=== PATIENT | male | born 1975 | race Caucasian/White ===

== ENCOUNTER 2019-02-14 23:45 | Emergency (ER) | payer MEDICAID ==
[~2019-02-14] VITALS: Ht 162.6 cm; Wt 77.1 kg
[2019-02-15] VITALS: BP 149/93
--- NOTE | 2019-02-15 | NUR ---
PT AMBULATED TO BED 1 A THIS TIME
--- NOTE | 2019-02-15 00:35 | NUR ---
DR ALCALA AT BEDSIDE.
[2019-02-15] MEDS ORDERED: predniSONE 20 MG TAB PO ONE (00:45)
[2019-02-15] MEDS ORDERED: ALBUTEROL SULFATE/IPRATROPIU 3 ML SOL IH ONE (00:45)
[2019-02-15 01:43] VITALS: BP 157/94
--- NOTE | 2019-02-15 01:43 | NUR ---
Patient discharged with v/s stable. Written and verbal after care instructions given and explained. Patient alert, oriented and verbalized understanding of instructions. Ambulatory with steady gait. All questions addressed prior to discharge. ID band removed. Patient advised to follow up with PMD. Rx of AZITHROMYCIN, PREDNISONE, GUAIATUSSIN, ALBUTEROL INH given. Patient educated on indication of medication including possible reaction and side effects. Opportunity to ask questions provided and answered.
== END 2019-02-15 01:43 | disposition home or self-care (01) ==
LOC: MED 23:45
DX: J18.9 Pneumonia, unspecified organism (principal); J45.901 Unspecified asthma with (acute) exacerbation; F17.200 Nicotine dependence, unspecified, uncomplicated; Z98.890 Other specified postprocedural states
CPT/HCPCS: 71045; 87804; 94640; 99284; J7512; J7620; Q0092

== ENCOUNTER 2019-06-05 09:39 | Emergency (ER) | payer MEDICAID ==
[~2019-06-05] VITALS: Ht 162.6 cm; Wt 72.7 kg
[2019-06-05 09:44] VITALS: BP 175/84
--- NOTE | 2019-06-05 09:51 | NUR ---
pt amb to bed 12.
--- NOTE | 2019-06-05 09:52 | NUR ---
C/O POSSIBLE BUG BITE TO R SHOULDER, 06/22 DULL PAIN X2 DAYS. PT DENIES N/V/D/FEVER. PT DENIES INTRAVENOUS DRUG USE. RED/SWOLLEN BUMP WITH SMALL BLACK SPOT IN THE CENTER. PT STATES HE DOES NOT KNOW IF ITS A BUG BITE OR WHAT IT IS. NO BITES OR BUMPS FOUND ANYWHERE ELSE ON THE BODY PER PT. PT IN BED IN LOW POSITION, SIDE RAIL UP X1.
--- NOTE | 2019-06-05 10:10 | NUR ---
DR. ARGUELLES AT BEDSIDE EVALUATING PT
[2019-06-05] MEDS ORDERED: VANCOMYCIN 1,000 MG in DEXTROSE 5% 250 ML IV ONE (10:25)
[2019-06-05] MEDS ORDERED: VANCOMYCIN 1,000 MG VIAL ONE (10:38)
--- NOTE | 2019-06-05 11:23 | NUR ---
PT RESTING IN BED, AT BEDSIDE. DENIES PAIN OR ANY NEW NEEDS AT THIS TIME.
--- NOTE | 2019-06-05 12:00 | NUR ---
Patient discharged with v/s stable. Written and verbal after care instructions given and explained. Patient alert, oriented and verbalized understanding of instructions. Ambulatory with steady gait. All questions addressed prior to discharge. ID band removed. Patient advised to follow up with PMD. Rx of KEFLEX & BACTRIM given. Patient educated on indication of medication including possible reaction and side effects. Opportunity to ask questions provided and answered.
[2019-06-05 12:30] VITALS: BP 160/80
== END 2019-06-05 10:17 | disposition home or self-care (01) ==
LOC: MED 09:39
DX: R21 Rash and other nonspecific skin eruption (principal); M25.511 Pain in right shoulder; J45.909 Unspecified asthma, uncomplicated
CPT/HCPCS: 96365; 96366; 99283; J3370

== ENCOUNTER 2019-08-10 19:43 | Emergency (ER) | payer MEDICAID ==
[~2019-08-10] VITALS: Ht 162.6 cm; Wt 77.1 kg
[2019-08-10 19:50] VITALS: BP 145/85
[2019-08-10] MEDS ORDERED: KETOROLAC 15 MG/ML VIAL IM ONE (20:15)
[2019-08-10 22:26] VITALS: BP 132/82
== END 2019-08-10 22:25 | disposition home or self-care (01) ==
LOC: MED 19:43
DX: S93.401A Sprain of unspecified ligament of right ankle, initial encounter (principal); J45.909 Unspecified asthma, uncomplicated; F15.90 Other stimulant use, unspecified, uncomplicated; W01.0XXA Fall on same level from slipping, tripping and stumbling without subsequent striking against object, initial encounter; Y93.02 Activity, running; Y92.34 Swimming pool (public) as the place of occurrence of the external cause; Y99.8 Other external cause status
CPT/HCPCS: 73610; 90471; 90715; 96372; 99283; J1885; Q0092

== ENCOUNTER 2019-09-25 16:07 | Emergency (ER) | payer MEDICAID ==
[~2019-09-25] VITALS: Ht 162.6 cm; Wt 72.6 kg
[2019-09-25 16:15] VITALS: BP 155/100
[2019-09-25] MEDS ORDERED: NACL 0.9% 1,000 ML IV ONE (16:50)
[2019-09-25] MEDS ORDERED: KETOROLAC 30 MG/ML VIAL IVP ONE (16:50)
[2019-09-25 17:25] LABS: BASOPHILS % (AUTO) 0.4 % (0.0-2.0); EOSINOPHILS # (AUTO) 0.4 K/uL (0-0.4); EOSINOPHILS % (AUTO) 3.3 % (0.0-4.0); HEMATOCRIT 44.2 % (36-52); HEMOGLOBIN 14.7 g/dL (12.0-18.0); LYMPHOCYTES # (AUTO) 1.2 K/uL (2.0-11.5); LYMPHOCYTES % (AUTO) 8.9 % (20.5-51.1); MEAN CORPUSCULAR HEMOGLOBIN 30 pg (27-31); MEAN CORPUSCULAR HGB CONC 33 g/dL (33-37); MEAN CORPUSCULAR VOLUME 91.3 fL (80-94); MONOCYTES # (AUTO) 0.7 K/uL (0.8-1.0); MONOCYTES % (AUTO) 5.3 % (1.7-9.3); NEUTROPHILS % (AUTO) 82.1 % (42.2-75.2); PLATELET COUNT (AUTO) 261 K/uL (140-450); RED BLOOD CELL COUNT(AUTO) 4.84 MIL/uL (4.20-6.10); WHITE BLOOD COUNT (AUTO) 13.4 K/uL (4.8-10.8)
[2019-09-25 17:40] LABS: ANION GAP 11.2 (8-16); CARBON DIOXIDE 27.7 mmol/L (21-32); CREATININE 0.8 mg/dL (0.7-1.3); POTASSIUM 3.9 mmol/L (3.5-5.1)
[2019-09-25 17:54] LABS: ALBUMIN 3.2 g/dL (3.4-5.0); TOTAL BILIRUBIN 0.6 mg/dL (0.0-1.0)
[2019-09-25 18:02] LABS: PROTHROMBIN TIME 9.2 secs (10.8-13.4)
[2019-09-25 18:26] LABS: APPEARANCE,URINE CLEAR (CLEAR); BILIRUBIN,URINE 1+ (NEGATIVE); BLOOD, URINE NEGATIVE (NEGATIVE); COLOR,URINE YELLOW (YELLOW); LEUKOCYTE ESTERASE ,URINE NEGATIVE (NEGATIVE); NITRITE, URINE NEGATIVE (NEGATIVE); UGLUCOSE NEGATIVE (NEGATIVE)
[2019-09-25 18:34] LABS: BARBITURATE, URINE NEG. ng/ml (NEG <=200); BENZODIAZEPINE, URINE NEG. ng/mL (NEG <=200); CANNABINOID, URINE NEG. ng/mL (NEG <=50); COCAINE, URINE NEG. ng/mL (NEG <=300); OPIATE, URINE POS. ng/mL (NEG <=2000); PHENCYCLIDINE SCREEN,URINE NEG. ng/mL (NEG <=25)
[2019-09-25 19:32] VITALS: BP 150/82
== END 2019-09-25 19:32 | disposition home or self-care (01) ==
LOC: MED 16:07
DX: S20.222A Contusion of left back wall of thorax, initial encounter (principal); S01.01XA Laceration without foreign body of scalp, initial encounter; E86.0 Dehydration; L03.116 Cellulitis of left lower limb; I10 Essential (primary) hypertension; J45.909 Unspecified asthma, uncomplicated; Z98.890 Other specified postprocedural states; F17.200 Nicotine dependence, unspecified, uncomplicated; X58.XXXA Exposure to other specified factors, initial encounter; Y92.89 Other specified places as the place of occurrence of the external cause; Y93.89 Activity, other specified; Y99.8 Other external cause status
CPT/HCPCS: 36415; 36600; 71045; 72072; 80053; 80305; 81003; 82803; 83605; 83880; 84484; 85025; 85610; 85730; 87040; 87086; 87804; 93005; 96361; 96374; 99284; J1885; J7030; Q0092; 12001

== ENCOUNTER 2019-10-13 13:52 | Inpatient (IN) | payer MEDICAID ==
[~2019-10-13] VITALS: Ht 162.6 cm; Wt 72.1 kg
[2019-10-13 14:00] VITALS: BP 162/132
--- NOTE | 2019-10-13 14:00 | NUR ---
NORIS MUNSON. SENT TO LOB, AWAITING BED IN ED. VSS.
--- NOTE | 2019-10-13 14:32 | NUR ---
44/M BIB FAMILY C/O SWOLLEN LOWER LIP X 3 DAYS. DENIES DISCHARGE/DRIANAGE. DENIES CP/SOB. SPEAKING IN FULL COMPLETE SENTENCES. PATIENT STATES PAIN OF 10 AT THIS TIME. PATIENT POSITIONED FOR COMFORT; HOB ELEVATED; BEDRAILS UP X1; BED DOWN. ER MADE AWARE OF PT STATUS. Addendum: 10/13/19 at 1839 by MEDOF PT SEEN IN [facility] FOR SAME C/C. PER GIVEN A MORPHINE SHOT IN FACILITY, AND ABX PRESCRIPTION. PER DID NOT GO TO PHARMACY TO GET ABX.
--- NOTE | 2019-10-13 14:32 | NUR ---
PT AMB TO BED 2.
[2019-10-13] MEDS ORDERED: MORPHINE SULFATE 4 MG/ML SYR IVP ONE (15:00)
[2019-10-13] MEDS ORDERED: NACL 0.9% 1,000 ML IV ONE (15:00)
[2019-10-13] MEDS ORDERED: ONDANSETRON 4 MG/2 ML VIAL IVP ONE (15:00)
[2019-10-13 15:23] LABS: HEMATOCRIT 42.3 % (36-52); HEMOGLOBIN 13.8 g/dL (12.0-18.0); MEAN CORPUSCULAR HEMOGLOBIN 30 pg (27-31); MEAN CORPUSCULAR HGB CONC 33 g/dL (33-37); MEAN CORPUSCULAR VOLUME 90.7 fL (80-94); PLATELET COUNT (AUTO) 320 K/uL (140-450); RED BLOOD CELL COUNT(AUTO) 4.67 MIL/uL (4.20-6.10); RED CELL DISTRIBUTION WIDTH 13.2 % (11.6-13.7); WHITE BLOOD COUNT (AUTO) 20.2 K/uL (4.8-10.8)
[2019-10-13 15:36] LABS: ANION GAP 12.8 (8-16); CARBON DIOXIDE 25.8 mmol/L (21-32); CREATININE 0.7 mg/dL (0.7-1.3); POTASSIUM 3.6 mmol/L (3.5-5.1)
[2019-10-13 15:42] LABS: ALBUMIN 3.3 g/dL (3.4-5.0); TOTAL BILIRUBIN 0.4 mg/dL (0.0-1.0)
--- NOTE | 2019-10-13 16:23 | NUR ---
PT ROUNDING ; PT SLEEPING
[2019-10-13] MEDS ORDERED: METOPROLOL 5 MG/5 ML VIAL IVP ONE (16:35)
--- NOTE | 2019-10-13 16:35 | NUR ---
MD CARMONA NOTIFIED OF BLOOD PRESSURE PARAMETERS.
[2019-10-13 16:38] LABS: LYMPHOCYTES % (MANUAL) 10 % (20-46)
[2019-10-13 16:39] LABS: BASOPHILS % (MANUAL) 0 % (0-2); EOSINOPHILS % (MANUAL) 0 % (0-4); MONOCYTES % (MANUAL) 6 % (5-12)
--- NOTE | 2019-10-13 16:51 | NUR ---
PT TAKEN TO CT VIA WHEELCHAIR
--- NOTE | 2019-10-13 17:21 | NUR ---
PT BACK FROM CT VIA WHEELCHAIR
[2019-10-13] MEDS ORDERED: CLINDAMYCIN 900 MG in DEXTROSE 5% 100 ML IV ONE (17:35)
[2019-10-13] MEDS ORDERED: CLINDAMYCIN 900 MG/6 ML VIAL IV ONE (17:45)
--- NOTE | 2019-10-13 19:02 | NUR ---
Pt report given to ERNESTO RUBIO. Transfer of care at this time.
--- NOTE | 2019-10-13 19:41 | NUR ---
RR EVEN AND UNLABORED. PT RESTING WITH EYES CLOSED. PT PLACED ON MONITOR. VSS.
[2019-10-13] MEDS ORDERED: ONDANSETRON 4 MG/2 ML VIAL IM/IVP PRN (19:55)
[2019-10-13] MEDS ORDERED: LORazepam 2 MG/ML VIAL IM/IVP PRN (19:55)
[2019-10-13] MEDS ORDERED: GENTAMICIN PER PHARMACY MC PRN (19:55)
[2019-10-13] MEDS ORDERED: DOCUSATE SODIUM 100 MG GELCAP PO PRN (19:55)
[2019-10-13] MEDS ORDERED: VANCOMYCIN PER PHARMACY MC PRN (20:40)
[2019-10-13 20:53] LABS: ANION GAP 16.1 (8-16); CARBON DIOXIDE 24.3 mmol/L (21-32); POTASSIUM 3.4 mmol/L (3.5-5.1); TOTAL BILIRUBIN 0.4 mg/dL (0.0-1.0)
[2019-10-13 20:56] LABS: PROTHROMBIN TIME 9.5 secs (10.8-13.4)
--- NOTE | 2019-10-13 20:58 | NUR ---
Patient will be admitted to care of DR BUSTILLO. Admited to TELE. Will go to room 107B. Belongings list completed. Report to RAMIRO YOUNG.
[2019-10-13 21:00] VITALS: BP 187/106
--- NOTE | 2019-10-13 21:00 | NUR ---
PT BROUGHT UP TO FLOOR VIA W/C HE WAS ESCORTED TO ROOM 107 AND PT AMBULATED TO BED B. PT CC/FACIAL SWELLING, DX IS CELLULITIS. PT IS ON 4 LITERS VIA N/C. HE ALSO HAS SOME SCATTERED SCABS ON ARM AND A LARGE SCAB ON LEFT BACK OF LOWER LEG, WHICH IS DRY AND CLOSED. PT LOWER LIP IS VERY EDEMAS AND CHAPPED LOOKING. FACIAL SWELLING NOTED ON JAW LINE. REPORT GIVEN BY ERNESTO AT BEDSIDE. ADMISSION V/S FOLLOWS T 99.4 P 94 R 18 B/P 187/106 02 100% WITH 4 LITERS VIA N/C. RESPIRATIONS EVEN ND UNLABORED. PT DENIES PAIN AT THIS TIME. WILL SPEAK TO MD NATHAN REGARDING PT ELEVATED BLOOD PRESSURE.
[2019-10-13 21:04] LABS: ALBUMIN 3.3 g/dL (3.4-5.0); CREATININE 0.8 mg/dL (0.7-1.3); MAGNESIUM 1.6 mg/dL (1.8-2.4); PHOSPHORUS 3.7 mg/dL (2.5-4.9); THYROID STIMULATING HORMONE 2.13 uIU/mL (0.34-3.74)
[2019-10-13] MEDS ORDERED: VANCOMYCIN 1,000 MG VIAL ONE (21:29)
[2019-10-13] MEDS ORDERED: MAG SULF 2000 MG/WATER PREMIX 50 ML IV ONE (21:55)
[2019-10-13] MEDS ORDERED: PIPERACILLIN/TAZOBACTAM 3.375 GM in DEXTROSE 5% 50 ML IV SCH (22:00)
[2019-10-13] MEDS: NACL 0.9% 1,000 ML IV SCH (22:14)
[2019-10-13] MEDS: methylPREDNISolone SS 125 MG/2 ML VIAL IVP SCH (22:18)
[2019-10-13] MEDS ORDERED: METOPROLOL 25 MG TAB PO SCH (22:30)
--- NOTE | 2019-10-13 22:30 | NUR ---
SPOKE WITH MD NATHAN, SHE ORDERED METOPROLOL 25 MG BID FOR ELEVATED B/P. PT ALSO GIVEN ORDERED VANCOCIN AND SOLUMEDROL. IV SITE INTACT AND FLUSHED PATENT ORDERED NS TO RUN AT 70MLS/HR.
[2019-10-13] MEDS: VANCOMYCIN 1,000 MG in DEXTROSE 5% 250 ML IV SCH (22:32)
[2019-10-13] MEDS ORDERED: LACTULOSE 20 GM/30 ML UDC PO SCH (23:00)
[2019-10-13] MEDS ORDERED: THIAMINE 200 MG/2 ML VIAL IM SCH (23:00)
[2019-10-13] MEDS ORDERED: POTASSIUM CHLORIDE 10 MEQ TABER PO SCH (23:00)
[2019-10-13] MEDS ORDERED: MULTIVITAMIN-12 10 ML in NACL 0.9% 1,000 ML IV SCH (23:00)
[2019-10-13] MEDS ORDERED: MAG SULF 2000 MG/WATER PREMIX 50 ML IV SCH (23:00)
[2019-10-13] MEDS ORDERED: FOLIC ACID 5 MG/ML SYR IM SCH (23:00)
[2019-10-13] MEDS: KETOROLAC 15 MG/ML VIAL IM PRN (23:26)
--- NOTE | 2019-10-13 23:30 | NUR ---
PT GIVEN ORDERED VITAMIN B12 SHOT AND FOLIC ACID SHOT. PT ALSO REQUESTED TORADOL FOR FACIAL PAIN. NEW IV SITE R HAND 22G PROVIDED TO RUN MAG AT 25MLS/HR DUE TO MAGNESIUM LEVEL BEING LOW. ZOSYN HUNG AND RUNNING ORDERED AT 100MLS AN HR. V/S FOLLOWS : T 97.0 P 85 R 18 B/P 172/100 02 98% WITH 4 LITERS VIA N/C. BED LOW SIDE RAILS UP AND CALL RUTLEDGE IN REACH.
[2019-10-14] MEDS ORDERED: CLINDAMYCIN 600 MG in DEXTROSE 5% 50 ML IV SCH ×2
[2019-10-14] MEDS ORDERED: PIPERACILLIN/TAZOBACTAM 3.375 GM VIAL IV ONE ×2 (01:08→06:24)
[2019-10-14] MEDS ORDERED: MULTIVITAMIN-12 10 ML VIAL IV ONE ×2 (01:52→02:08)
[2019-10-14 04:00] VITALS: BP 126/79
[2019-10-14] MEDS ORDERED: VANCOMYCIN 1,000 MG VIAL ONE (06:24)
[2019-10-14] MEDS: PIPERACILLIN/TAZOBACTAM 3.375 GM in DEXTROSE 5% 50 ML IV SCH ×3 (06:46→17:45)
[2019-10-14] MEDS: VANCOMYCIN 1,000 MG in DEXTROSE 5% 250 ML IV SCH ×2 (06:46→14:25)
[2019-10-14] MEDS: methylPREDNISolone SS 125 MG/2 ML VIAL IVP SCH ×3 (06:47→20:59)
[2019-10-14 06:49] LABS: BASOPHILS % (AUTO) 0.3 % (0.0-2.0); HEMATOCRIT 45.2 % (36-52); HEMOGLOBIN 14.7 g/dL (12.0-18.0); LYMPHOCYTES % (AUTO) 5.3 % (20.5-51.1); MEAN CORPUSCULAR HEMOGLOBIN 30 pg (27-31); MEAN CORPUSCULAR HGB CONC 32 g/dL (33-37); MEAN CORPUSCULAR VOLUME 91.6 fL (80-94); MONOCYTES # (AUTO) 0.4 K/uL (0.8-1.0); MONOCYTES % (AUTO) 2.2 % (1.7-9.3); NEUTROPHILS # (AUTO) 17.2 K/uL (1.8-7.7); NEUTROPHILS % (AUTO) 92.2 % (42.2-75.2); PLATELET COUNT (AUTO) 349 K/uL (140-450); RED BLOOD CELL COUNT(AUTO) 4.94 MIL/uL (4.20-6.10); RED CELL DISTRIBUTION WIDTH 13.6 % (11.6-13.7); WHITE BLOOD COUNT (AUTO) 18.7 K/uL (4.8-10.8)
--- NOTE | 2019-10-14 07:10 | NUR ---
RECEIVED REPORT FROM ICE PLANT OPERATOR NURSE HANNAH. PT IS SLEEPING, AROUSABLE TO NAME, NO C/O PAIN AT THIS TIME. PT ON EXCAVATING CONTRACTOR. IV ON RT AC 18 GA AND RT HAND 22 GA RUNNING IVF PER ORDER, DRESSING CLEAN, DRY AND INTACT. RESPIRATIONS EVEN AND UNLABORED ON O2 4L VIA N/C. ABD SOFT, ACTIVE BS. SKIN IS INTACT, WARM TO TOUCH. SAFETY MEASURES IN PLACE, CALL LIGHT WITHIN REACH. REVIEWED POC WITH PT AND /ADA AT BEDSIDE -VERBALIZED UNDERSTANDING.
[2019-10-14 07:42] LABS: ANION GAP 13.3 (8-16); CARBON DIOXIDE 26.2 mmol/L (21-32); CREATININE 0.9 mg/dL (0.7-1.3); POTASSIUM 4.5 mmol/L (3.5-5.1)
[2019-10-14 07:50] LABS: CHOL/HDL RATIO 2.5 (1-4.5); MAGNESIUM 2.3 mg/dL (1.8-2.4); PHOSPHORUS 5.5 mg/dL (2.5-4.9)
[2019-10-14 08:00] VITALS: BP 120/72
--- NOTE | 2019-10-14 08:25 | NUR ---
REPORTED TO DR DRAKE THAT PT'S HR RANGES FORM Addendum: 10/14/19 at 0827 by Buffy Delcid RN CLARIFICATION: REPORTED TO DR DRAKE THAT PT'S HR RANGES FROM 45-72. PT IS AROUSABLE TO NAME, ORIENTED X4. PER PHYSICIAN, HOLD LOPRESSOR AT THIS TIME AND REPORT ANY CHANGES IN PT'S CONDITION.
[2019-10-14] MEDS: METOPROLOL 25 MG TAB PO SCH ×2 (08:28→21:03)
--- NOTE | 2019-10-14 08:55 | NUR ---
PATIENT HAS BEEN SCREENED AND CATEGORIZED MODERATE NUTRITION RISK. PATIENT WILL BE SEEN WITHIN 3-5 DAYS OF ADMISSION. 10/16/19 10/18/[address]
--- NOTE | 2019-10-14 10:30 | NUR ---
NOTIFIED DR. DRAKE THAT PT WANTS TO TAKE A SHOWER, PT TO PUT IN ADDITIONAL ORDER FOR SHOWER ACTIVITY.
[2019-10-14] MEDS: NACL 0.9% 1,000 ML IV SCH (11:18)
--- NOTE | 2019-10-14 11:24 | NUR ---
DC PLANNIN YRS OLD MALE PATIENT WAS ADMITTED FROM HOME WITH A DX OF FACIAL CELLULITES. HX OF ASTHMA, SUBSTANCE ABUSE AND LIVER CIRRHOSIS. CT OF THE FACE SHOWS NO FRACTURE OR MASS . ADMINISTERED IVF, CLINDAMYCIN, ZOSYN AND VANCOMYCIN . DC PLAN TO GO BACK HOME WHEN STABLE CM TO FOLLOW Addendum: 10/16/19 at 1320 by Tamiko Levi CM DC PLANNING: CONTINUE WITH IV ABX AMPICILLIN AND WOUND CARE WAITING FOR LIP WOUND CULTURE . AMMONIA LEVEL 49 ON LACTULOSE. DC PLAN TO GO HOME WITH ANTIBIOTICS. CM TO FOLLOW.
[2019-10-14 12:00] VITALS: BP 119/71
--- NOTE | 2019-10-14 13:39 | NUR ---
ADMINISTERED SOLUMEDROL AND ZOSYN PER ORDER, PT AND /ADA AWARE OF INDICATIONS AND POTENTIAL SIDE EFFECTS.
[2019-10-14] MEDS: KETOROLAC 15 MG/ML VIAL IM PRN (15:03)
--- NOTE | 2019-10-14 15:03 | NUR ---
ADMINISTERED TORADOL FOR LEVEL 6/10 PAIN TO LIPS, WILL REASSESS WITHIN 1 HOUR.
--- NOTE | 2019-10-14 15:25 | NUR ---
Traffic Manager Note: Basic Screen: Yes High Risk DC Screen Davey: JENY Coyne Relationship: SIGNIFICANT OTHER Pre-Admission Living Arrangements: Lives with Other Other: AUNT/UNCLE Current Home Health Name/Tel: N/A Current DME/02 Name/Tel: N/A Current Hospice Name/Tel: N/A Current Dialysis Name/Tel: N/A Healthcare Decision Maker: Patient Advance Directive No - REFUSED Information Taught: Advance Directive Community Resources Person Taught: Patient Teaching Tools: Verbal Factors Affecting Learning: None Participation Level: Refused Evaluation: Verbalizes Understanding Discipline: Case Mgt/Social Svcs Tentative Discharge Plan/Destination: No Needs Identified Will require assistance post discharge: No Referred to Gameroom Technician: No Tentative Discharge Plan Summary: Patient is a 44-year-old male admitted for facial pain. Patient has PMHX of asthma and liver cirrhosis. Patient was admitted from home. SW verified demographics with patient. Patient reports no mental heatlh history. Patient reports substance abuse history of daily alcohol use 6-12 beers a day and smoking a pack of cigarettes a day. Patient also reports methamphetamine use (1 dime a week). Patient refused substance abuse resources. SW provided education on advanced directive and patient refused. Patient's plan after discharge is to return home. No further needs identified. Signature: APPLE Whitt Date: Oct 14, 2019 Time: 15:24
[2019-10-14 16:00] VITALS: BP 133/79
--- NOTE | 2019-10-14 16:00 | NUR ---
PT HAS NO C/O PAIN AT THIS TIME. NO S/S OF RESPIRATORY DISTRESS.
--- NOTE | 2019-10-14 17:45 | NUR ---
ADMINISTERED ZOSYN PER ORDER, PT IS AWARE OF INDICATIONS AND POTENTIAL SIDE EFFECTS
--- NOTE | 2019-10-14 19:20 | NUR ---
ENDORSED PT TO ANIMAL TRAPPER NURSE FAREED. PT HAS NO S/S OF DISTRESS AT THIS TIME.
--- NOTE | 2019-10-14 19:21 | NUR ---
RECEIVED ENDORSEMENT FROM AM SHIFT NURSE. PATIENT ALERT AND ORIENTED X4. NO APPARENT DISTRESS NOTED. WITH RIGHT AC 18G RUNNING IVF AND 22G. WILL CONTINUE TO MONITOR.
[2019-10-14 20:00] VITALS: BP 132/75
--- NOTE | 2019-10-14 21:21 | NUR ---
PATIENT AWAKE IN BED. NO APPARENT DISTRESS NOTED. BED ON LOW POSITION. CALL LIGHT WITHIN REACH. WILL CONTINUE TO MONITOR.
--- NOTE | 2019-10-14 23:20 | NUR ---
PATIENT ASLEEP IN BED. NO APPARENT DISTRESS NOTED. VISIBLE CHEST RISE AND FALL NOTED. WILL CONTINUE TO MONITOR.
[2019-10-15] VITALS: BP 124/77
[2019-10-15] MEDS: NACL 0.9% 1,000 ML IV SCH ×3 (00:42→20:10)
[2019-10-15] MEDS: AMPICILLIN/SULBACTAM 3 GM in NACL 0.9% 100 ML IV SCH ×4 (00:42→18:06)
--- NOTE | 2019-10-15 01:18 | NUR ---
PATIENT ASLEEP IN BED. NO APPARENT DISTRESS NOTED. VISIBLE CHEST RISE AND FALL NOTED. BED ON LOW POSITION. CALL LIGHT WITHIN REACH. WILL CONTINUE TO MONITOR.
--- NOTE | 2019-10-15 02:40 | NUR ---
ROUNDS DONE. PATIENT ASLEEP IN BED. NO APPARENT DISTRESS NOTED. WILL CONTINUE TO MONITOR.
[2019-10-15] MEDS: KETOROLAC 15 MG/ML VIAL IM PRN ×3 (03:06→20:10)
[2019-10-15 04:00] VITALS: BP 132/74
--- NOTE | 2019-10-15 04:35 | NUR ---
PATIENT ASLEEP IN BED. NO APPARENT DISTRESS NOTED. WILL CONTINUE TO MONITOR.
[2019-10-15] MEDS: methylPREDNISolone SS 125 MG/2 ML VIAL IVP SCH (05:27)
--- NOTE | 2019-10-15 06:14 | NUR ---
PATIENT AWAKE IN BED. BED ON LOW POSITION. CALL LIGHT WITHIN REACH. NO APPARENT DISTRESS NOTED. DENIES PAIN NOR DISCOMFORT. WILL CONTINUE TO MONITOR.
--- NOTE | 2019-10-15 07:25 | NUR ---
ENDORSED PATIENT TO AM SHIFT NURSE FOR CONTINUITY OF CARE.
--- NOTE | 2019-10-15 07:25 | NUR ---
REPORT RECEIVED FROM NURSE GUERRIER. PT SLEEPING, AROUSABLE TO VERBAL STIMULI. DENIES PAIN OR DISCOMFORT. NO S/S OF ACUTE DISTRESS NOTED AT THIS TIME. CALL LIGHT AMD PERSONAL ITEMS WITHIN EASY REACH, SAFETY AND FALL PRECAUTIONS IN PLACE,NO S/S OF ACUTE DISTRESS AT THIS TIME, WILL CONTINUE TO MONITOR.
[2019-10-15 08:00] VITALS: BP 126/71
[2019-10-15 08:05] LABS: BASOPHILS # (AUTO) 0.1 K/uL (0.00-0.22); BASOPHILS % (AUTO) 0.2 % (0.0-2.0); HEMATOCRIT 41.2 % (36-52); HEMOGLOBIN 13.3 g/dL (12.0-18.0); LYMPHOCYTES # (AUTO) 1.3 K/uL (2.0-11.5); LYMPHOCYTES % (AUTO) 5.7 % (20.5-51.1); MEAN CORPUSCULAR HEMOGLOBIN 30 pg (27-31); MEAN CORPUSCULAR HGB CONC 32 g/dL (33-37); MEAN CORPUSCULAR VOLUME 91.4 fL (80-94); MONOCYTES % (AUTO) 4.4 % (1.7-9.3); NEUTROPHILS % (AUTO) 89.7 % (42.2-75.2); PLATELET COUNT (AUTO) 377 K/uL (140-450); RED BLOOD CELL COUNT(AUTO) 4.51 MIL/uL (4.20-6.10); RED CELL DISTRIBUTION WIDTH 12.7 % (11.6-13.7); WHITE BLOOD COUNT (AUTO) 22.3 K/uL (4.8-10.8)
[2019-10-15 08:13] LABS: ANION GAP 14.1 (8-16); APPEARANCE,URINE CLEAR (CLEAR); BILIRUBIN,URINE NEGATIVE (NEGATIVE); BLOOD, URINE NEGATIVE (NEGATIVE); CARBON DIOXIDE 25.1 mmol/L (21-32); COLOR,URINE YELLOW (YELLOW); CREATININE 0.7 mg/dL (0.7-1.3); LEUKOCYTE ESTERASE ,URINE NEGATIVE (NEGATIVE); NITRITE, URINE NEGATIVE (NEGATIVE); PH,URINE 7.5 (5.0-9.0); POTASSIUM 4.2 mmol/L (3.5-5.1); UGLUCOSE NEGATIVE (NEGATIVE)
[2019-10-15 08:26] LABS: MAGNESIUM 2.1 mg/dL (1.8-2.4); PHOSPHORUS 3.7 mg/dL (2.5-4.9)
[2019-10-15 08:36] LABS: BARBITURATE, URINE NEG. ng/ml (NEG <=200); BENZODIAZEPINE, URINE NEG. ng/mL (NEG <=200); CANNABINOID, URINE NEG. ng/mL (NEG <=50); COCAINE, URINE NEG. ng/mL (NEG <=300); OPIATE, URINE NEG. ng/mL (NEG <=2000); PHENCYCLIDINE SCREEN,URINE NEG. ng/mL (NEG <=25)
[2019-10-15] MEDS: METOPROLOL 25 MG TAB PO SCH ×2 (08:45→20:08)
[2019-10-15 08:57] LABS: T4 (THYROXINE) 5.5 ug/dL (4.5-12.0)
[2019-10-15] MEDS ORDERED: MULTIVITAMIN-12 10 ML, THIAMINE 100 MG, FOLIC ACID 1 MG, MAGNESIUM SULFATE 50% 2,000 MG... IV SCH ×5 (09:00)
--- NOTE | 2019-10-15 09:55 | NUR ---
PER AARON IN LAB PT MRSA NARES POSITIVE, RESULTS TO FOLLOW; CHARGE NURSE NOTIFIED, RESIDENT NOTIFIED, PT PLACED ON ISOLATION PER PROTOCOL, EDUCATED PT REGARDING ROOM TRANSFER AND ISOLATION PRECAUTIONS, VERBALIZED AGREEMENT AND UNDERSTANDING. CALL LIGHT AND PERSONAL ITEMS PLACED WITHIN EASY REACH, SAFETY AND FALL PRECAUTIONS IN PLACE,NO S/S OF ACUTE DISTRESS AT THIS TIME, WILL CONTINUE TO MONITOR.
[2019-10-15 12:00] VITALS: BP 140/80
--- NOTE | 2019-10-15 12:55 | NUR ---
PT BROTHER IN LAW AT BEDSIDE, PROVIDED EDUCATION REGARDING ISOLATION, VERBALIZED UNDERSTANDING, ASSISTED W COMPLIANCE. PT C/O OF PAIN WILL MEDICATE PER ORDER, CALL LIGHT AND PERSONAL ITEMS WITHIN EASY REACH, SAFETY AND FALL PRECAUTIONS IN PLACE, WILL CONTINUE TO MONITOR.
[2019-10-15] MEDS ORDERED: LACTULOSE 20 GM/30 ML UDC PO SCH (13:11)
--- NOTE | 2019-10-15 15:30 | NUR ---
PT SLEEPING AT THIS TIME, APPEARS COMFORTABLE, NO S/S OF ACUTE DISTRESS NOTED, CALL LIGHT AND PERSONAL ITEMS WITHIN EASY REACH, SAFETY AND FALL PRECAUTIONS IN PLACE, WILL CONTINUE TO MONITOR.
[2019-10-15] MEDS: MUPIROCIN CA NASAL 2% 1GM TUBE NS SCH (15:38)
[2019-10-15] MEDS: CHLORHEXADINE GLUC 2% CLOTH TP SCH (15:40)
[2019-10-15 16:00] VITALS: BP 143/80
--- NOTE | 2019-10-15 18:30 | NUR ---
PT REMAINS A/O ABLE TO COMMUNICATE NEEDS DURING SHIFT. PT SLEEPING AT THIS TIME. SIGNIFICANT OTHER AT BEDSIDE, EDUCATED VISITOR ON ISOLATION PRECAUTIONS AND PPE WITH COMPLIANCE. PT HAS CALL LIGHT AND PERSONAL ITEMS WITHIN EASY REACH, SAFETY AND FALL PRECAUTIONS IN PLACE,NO S/S OF ACUTE DISTRESS AT THIS TIME, WILL CONTINUE TO MONITOR.
--- NOTE | 2019-10-15 18:35 | NUR ---
SWAB OBTAINED FOR LIP CULTURE, PT TOLERATED WELL.
--- NOTE | 2019-10-15 19:26 | NUR ---
PT ASLEEP APPEARS COMFORTABLE, BEDSIDE REPORT GIVEN TO ONCOMING NURSE.
--- NOTE | 2019-10-15 19:30 | NUR ---
RECEIVED BEDSIDE REPORT DAY RN. PT IS AAOX4 ON ROOM AIR. RESPIRATIONS ARE EQUAL AND UNLABORED. LUNG SOUNDS ARE CLEAR. C/C FACIAL PAIN. DX FACIAL CELLULITIS PT WITH SCAB ON LIPS WITH SWELLING TO LIP AND L CHEEK. PT ON IV ANTIBIOTIC. PT ON CONTACT ISOLATION FOR MRSA. IV ON R HAND 22G AND RAC 18G BANANA BAG PER ORDERS AND NS AT 70ML. POC DISCUSSED WITH PT AND GIRLFRIEND. ALL SAFETY MEASURES ARE IN PLACE. CALL LIGHT IS WITHIN REACH. WILL CONTINUE TO MONITOR.
--- NOTE | 2019-10-15 20:10 | NUR ---
PRN TORADOL GIVEN FOR FACIAL PAIN. JOCELYNN LOPRESSOR GIVEN PT TOLERATED WELL. ALL NEEDS MET AT THIS TIME. WILL CONTINUE TO MONITOR.
--- NOTE | 2019-10-15 22:32 | NUR ---
PATIENT IS SLEEPING COMFORTABLY IN BED. CALL LIGHT IS WITHIN REACH. WILL CONTINUE TO MONITOR
[2019-10-16] VITALS: BP 146/89
--- NOTE | 2019-10-16 00:30 | NUR ---
VITAL SIGNS ARE WITHIN NORMAL LIMITS. ALL NEEDS MET AT THIS TIME. SAFETY MEASURES ARE IN PLACE.
[2019-10-16] MEDS: AMPICILLIN/SULBACTAM 3 GM in NACL 0.9% 100 ML IV SCH ×5 (00:38→23:41)
[2019-10-16] MEDS: ZOLPIDEM 5 MG TAB PO PRN ×2 (00:42→23:45)
--- NOTE | 2019-10-16 02:15 | NUR ---
PATIENT IS SLEEPING COMFORTABLY IN BED. CHEST RISE AND FALL. ALL NEEDS MET AT THIS TIME. WILL CONTINUE TO MONITOR
[2019-10-16] MEDS: KETOROLAC 15 MG/ML VIAL IM PRN ×4 (03:29→23:41)
--- NOTE | 2019-10-16 03:29 | NUR ---
ADMINISTERED PRN TORADOL FOR FACIAL PAIN 04/22. PT TOLERATED WELL. WILL CONTINUE TO MONITOR.
[2019-10-16 06:07] LABS: HEPATITIS A ANTIBODY IGM Negative (Negative); HEPATITIS B CORE AB TOTAL Negative (Negative); HEPATITIS B SURFACE ANTIBODY Non Reactive (.); HEPATITIS B SURFACE ANTIGEN Negative (Negative)
[2019-10-16 06:52] LABS: BASOPHILS % (AUTO) 0.2 % (0.0-2.0); EOSINOPHILS # (AUTO) 0.2 K/uL (0-0.4); EOSINOPHILS % (AUTO) 1.4 % (0.0-4.0); HEMATOCRIT 41.6 % (36-52); HEMOGLOBIN 13.5 g/dL (12.0-18.0); LYMPHOCYTES # (AUTO) 2.9 K/uL (2.0-11.5); LYMPHOCYTES % (AUTO) 22.1 % (20.5-51.1); MEAN CORPUSCULAR HEMOGLOBIN 30 pg (27-31); MEAN CORPUSCULAR HGB CONC 33 g/dL (33-37); MEAN CORPUSCULAR VOLUME 90.8 fL (80-94); MONOCYTES # (AUTO) 1.2 K/uL (0.8-1.0); MONOCYTES % (AUTO) 9.1 % (1.7-9.3); NEUTROPHILS # (AUTO) 8.7 K/uL (1.8-7.7); NEUTROPHILS % (AUTO) 67.2 % (42.2-75.2); PLATELET COUNT (AUTO) 328 K/uL (140-450); RED BLOOD CELL COUNT(AUTO) 4.58 MIL/uL (4.20-6.10); WHITE BLOOD COUNT (AUTO) 12.9 K/uL (4.8-10.8)
[2019-10-16 07:03] LABS: ANION GAP 14.3 (8-16); CARBON DIOXIDE 24.5 mmol/L (21-32); CREATININE 0.6 mg/dL (0.7-1.3); POTASSIUM 3.8 mmol/L (3.5-5.1)
[2019-10-16 07:09] LABS: PHOSPHORUS 3.4 mg/dL (2.5-4.9)
--- NOTE | 2019-10-16 07:30 | NUR ---
GAVE BEDSIDE REPORT TO DAY RN. PT ENDORSED IN STABLE CONDITION.
--- NOTE | 2019-10-16 07:54 | NUR ---
RECEIVED BEDSIDE REPORT FROM AGRICULTURE ENGINEER RN. PT IS AAOX4 ON ROOM AIR. RESPIRATIONS ARE EQUAL AND UNLABORED. LUNG SOUNDS ARE CLEAR. C/C FACIAL PAIN. DX FACIAL CELLULITIS PT WITH SCAB ON LIPS WITH SWELLING TO LIP AND L CHEEK. PT ON IV ANTIBIOTIC. PT ON CONTACT ISOLATION FOR MRSA. IV ON R HAND 22G AND RAC 18G SL PER ORDERS AND NS AT 70ML. POC DISCUSSED WITH PT AND GIRLFRIEND. ALL SAFETY MEASURES ARE IN PLACE. CALL LIGHT IS WITHIN REACH. WILL MONITOR PT CLOSELY.
--- NOTE | 2019-10-16 09:36 | NUR ---
ADMINISTERED MORNING MEDS TO PT. PT TOLERATED WELL. ALL NEEDS MET. WILL CONTINUE TO ROUND FREQUENTLY ON PT. BED IN LOW POSITION, CALL LIGHT WITHIN REACH.
[2019-10-16] MEDS: METOPROLOL 25 MG TAB PO SCH (09:37)
--- NOTE | 2019-10-16 11:24 | NUR ---
PT SLEEPING IN BED. ALL NEEDS MET. WILL CONTINUE TO ROUND FREQUENTLY ON PT. BED IN LOW POSITION, CALL LIGHT WITHIN REACH.
--- NOTE | 2019-10-16 13:45 | NUR ---
PT SLEEPING. ALL NEEDS MET. WILL CONTINUE TO ROUND FREQUENTLY ON PT. BED IN LOW POSITION, CALL LIGHT WITHIN REACH.
--- NOTE | 2019-10-16 15:28 | NUR ---
PT RESTING IN BED WATCHING TV WITH GIRLFRIEND AT BEDSIDE. ALL NEEDS MET. WILL CONTINUE TO ROUND FREQUENTLY ON PT.
[2019-10-16] MEDS: MUPIROCIN CA NASAL 2% 1GM TUBE NS SCH ×2 (16:17→17:15)
[2019-10-16] MEDS: CHLORHEXADINE GLUC 2% CLOTH TP SCH (16:18)
--- NOTE | 2019-10-16 17:00 | NUR ---
RECEIVED REPORT FROM DAY SHIFT NURSE JAMARI FOR CONTINUITY OF CARE. PT IN STABLE CONDITION. RESPIRATIONS EVEN AND UNLABORED, ROOM AIR. IV INTACT AND PATENT. SAFETY MEASURES IN PLACE. BED IN LOW POSITION. CALL LIGHT AT BEDSIDE. WILL CONTINUE TO MONITOR.
--- NOTE | 2019-10-16 18:24 | NUR ---
GAVE ORDERED DUE MEDICATIONS AT THIS TIME. PT TOLERATED WELL. BED IN LOW POSITION. CALL LIGHT AT BEDSIDE. WILL CONTINUE TO MONITOR.
--- NOTE | 2019-10-16 19:15 | NUR ---
GAVE REPORT TO DOCTOR OF PODIATRIC MEDICINE NURSE FOR CONTINUITY OF CARE. PT IN STABLE CONDITION. [id number]
--- NOTE | 2019-10-16 19:16 | NUR ---
RECEIVED BEDSIDE REPORT DAY RN. PT IS AAOX4 ON ROOM AIR. RESPIRATIONS ARE EQUAL AND UNLABORED. LUNG SOUNDS ARE CLEAR. C/C FACIAL PAIN. DX FACIAL CELLULITIS PT WITH SCAB ON LIPS WITH SWELLING TO LIP AND L CHEEK. PT ON IV ANTIBIOTIC. PT ON CONTACT ISOLATION FOR MRSA. IV ON R HAND 22G AND RAC 18G NS AT 70ML. POC DISCUSSED WITH PT. ALL SAFETY MEASURES ARE IN PLACE. CALL LIGHT IS WITHIN REACH. WILL CONTINUE TO MONITOR.
--- NOTE | 2019-10-16 19:53 | NUR ---
ENDORSED PT TO EYEGLASS ASSEMBLER FOR CONTINUITY OF CARE. PT IN STABLE CONDITION AT THIS TIME.
--- NOTE | 2019-10-16 20:23 | NUR ---
JOCELYNN LOPRESSOR ADMINISTERED PATIENT TOLERATED WELL. DENIES PAIN AT THIS TIME. ALL QUESTIONS AND CONCERNS ADDRESSED WITH PATIENT AND STILL WAITING FOR CX RESULTS FROM LIP CELLULITIS. GAVE COFFEE PER REQUEST. ALL NEEDS MET AT THIS TIME. CALL LIGHT IS WITHIN REACH.
[2019-10-16] MEDS: NACL 0.9% 1,000 ML IV SCH (20:26)
--- NOTE | 2019-10-16 22:12 | NUR ---
PT RESTING IN BED. ALL NEEDS MET. WILL CONTINUE TO ROUND FREQUENTLY ON PT. BED IN LOW POSITION, CALL LIGHT WITHIN REACH.
[2019-10-16 23:32] VITALS: BP 150/93
--- NOTE | 2019-10-16 23:34 | NUR ---
VITAL SIGNS ARE WITHIN NORMAL LIMITS. ALL SAFETY MEASURES ARE IN PLACE. CALL LIGHT IS WITHIN REACH. WILL CONTINUE TO MONITOR.
--- NOTE | 2019-10-17 01:23 | NUR ---
PATIENT IS SLEEPING COMFORTABLY IN BED CHEST RISE AND FALL. NO S/S OF DISTRESS. IS AT BEDSIDE. CALL LIGHT IS WITHIN REACH. WILL CONTINUE TO MONITOR.
--- NOTE | 2019-10-17 04:13 | NUR ---
PATIENT IS SLEEPING COMFORTABLY IN BED WITH EYES CLOSED. CHEST RISE AND FALL. SAFETY MEASURES ARE IN PLACE. CALL LIGHT IS WITHIN REACH.
[2019-10-17] MEDS ORDERED: GABAPENTIN 300 MG CAP ONE (12:49)
[2019-10-18 20:11] LABS: ANION GAP 13.6 (8-16); CARBON DIOXIDE 25.2 mmol/L (21-32); CREATININE 0.6 mg/dL (0.7-1.3); PHOSPHORUS 3.9 mg/dL (2.5-4.9); POTASSIUM 3.8 mmol/L (3.5-5.1)
[2019-10-19 10:36] LABS: BASOPHILS % (AUTO) 0.4 % (0.0-2.0); EOSINOPHILS # (AUTO) 0.4 K/uL (0-0.4); EOSINOPHILS % (AUTO) 5.1 % (0.0-4.0); HEMATOCRIT 43.9 % (36-52); HEMOGLOBIN 14.5 g/dL (12.0-18.0); LYMPHOCYTES # (AUTO) 2.5 K/uL (2.0-11.5); LYMPHOCYTES % (AUTO) 29.4 % (20.5-51.1); MEAN CORPUSCULAR HEMOGLOBIN 30 pg (27-31); MEAN CORPUSCULAR HGB CONC 33 g/dL (33-37); MEAN CORPUSCULAR VOLUME 90.7 fL (80-94); MONOCYTES % (AUTO) 11.2 % (1.7-9.3); NEUTROPHILS # (AUTO) 4.6 K/uL (1.8-7.7); NEUTROPHILS % (AUTO) 53.9 % (42.2-75.2); PLATELET COUNT (AUTO) 333 K/uL (140-450); RED BLOOD CELL COUNT(AUTO) 4.84 MIL/uL (4.20-6.10); RED CELL DISTRIBUTION WIDTH 13.2 % (11.6-13.7); WHITE BLOOD COUNT (AUTO) 8.6 K/uL (4.8-10.8)
== END 2019-10-17 14:25 | disposition home or self-care (01) | DRG 720 ==
LOC: MED 13:52 → MTU 19:54
PROVIDERS: ADMIT General Practice; ATTEND General Practice
DX: A41.9 Sepsis, unspecified organism (principal); G92 Toxic encephalopathy; E72.20 Disorder of urea cycle metabolism, unspecified; E44.1 Mild protein-calorie malnutrition; E87.6 Hypokalemia; T50.991A Poisoning by other drugs, medicaments and biological substances, accidental (unintentional), initial encounter; J45.909 Unspecified asthma, uncomplicated; F17.200 Nicotine dependence, unspecified, uncomplicated; L03.211 Cellulitis of face; K70.30 Alcoholic cirrhosis of liver without ascites; F19.90 Other psychoactive substance use, unspecified, uncomplicated; Z68.27 Body mass index [BMI] 27.0-27.9, adult; Z88.6 Allergy status to analgesic agent; Z88.5 Allergy status to narcotic agent; Y92.89 Other specified places as the place of occurrence of the external cause
CPT/HCPCS: 36415; 70487; 71045; 80048; 80053; 80202; 80305; 81003; 82140; 82150; 83036; 83605; 83690; 83735; 83880; 84100; 84134; 84436; 84443; 84484; 85025; 85610; 85730; 86702; 86704; 86706; 86708; 86709; 86803; 87040; 87070; 87075; 87081; 87086; 87186; 87205; 87340; 93005; 96361; 96365; 96375; 99285; A9153; G0482; J0295; J1885; J2270; J2405; J2543; J2930; J3370; J3411; J3475; J3490; J7030; J7060; Q0092; Q9967

== ENCOUNTER 2020-02-12 02:15 | Emergency (ER) | payer MEDICAID ==
[~2020-02-12] VITALS: Ht 160 cm; Wt 73.0 kg
[2020-02-12 02:31] VITALS: BP 127/78
--- NOTE | 2020-02-12 02:35 | NUR ---
45 YO MALE BIB SELF FOR C/O REDNESS/SWELLING TO L NIPPLE X 1 DAY. PAIN 10/10 RADIATING TO LEFT CHEST. PT DENIES FEVER CHILLS @ THIS TIME. L CHEST TENDER TO TOUCH/REDDENDED. WARM TO TOUCH. GURNEY LOCKED IN LOWEST POSITION. RX: ALBUTEROL HX: ASTHMA DRUG USE: METH LAST USED 02/12/20, ETOH- 12 PACK/DAY
--- NOTE | 2020-02-12 02:51 | NUR ---
Dr. Michel examining patient.
[2020-02-12] MEDS ORDERED: LIDOCAINE MPF 1% 5 ML ONE (02:55)
[2020-02-12] MEDS ORDERED: LIDOCAINE 2% 1000 MG/50 ML VIAL INJ ONE (03:00)
--- NOTE | 2020-02-12 03:30 | NUR ---
DR CLARK @ BEDSIDE FOR INICISION DRAINAGE OF ABSCESS. SEROSANGUINOUS DRAINAGE WITH PUS NOTED PT TOLERATED PROCEDURE WELL.
--- NOTE | 2020-02-12 03:45 | NUR ---
Patient discharged with v/s stable. Written and verbal after care instructions given and explained. Patient alert, oriented and verbalized understanding of instructions. Ambulatory with steady gait. All questions addressed prior to discharge. ID band removed. Patient advised to follow up with PMD. Rx of KEFLEX, BACTRIM, MOTRIN given. Patient educated on indication of medication including possible reaction and side effects. Opportunity to ask questions provided and answered.
[2020-02-12 04:06] VITALS: BP 132/65
== END 2020-02-12 03:45 | disposition home or self-care (01) ==
LOC: MED 02:15
DX: N61.1 Abscess of the breast and nipple (principal); R03.0 Elevated blood-pressure reading, without diagnosis of hypertension; J45.909 Unspecified asthma, uncomplicated; F17.210 Nicotine dependence, cigarettes, uncomplicated; F12.90 Cannabis use, unspecified, uncomplicated; Z88.6 Allergy status to analgesic agent; Z88.5 Allergy status to narcotic agent
CPT/HCPCS: 10060; 99283; J2001

== ENCOUNTER 2021-03-16 20:18 | Emergency (ER) | payer MEDICAID ==
[~2021-03-16] VITALS: Ht 157.5 cm; Wt 77.1 kg
[2021-03-16 20:32] VITALS: BP 143/118
--- NOTE | 2021-03-16 20:36 | NUR ---
PT TO AWAIT IN LOBBY, AMBULATORY
--- NOTE | 2021-03-16 20:49 | NUR ---
pt ambulated to bed 10
--- NOTE | 2021-03-16 20:54 | NUR ---
SEE PATIENT ASSESSMENT FOR MORE INFORMATION.
--- NOTE | 2021-03-16 20:54 | NUR ---
ERMD AT BEDSIDE ASSESSING PATIENT.
[2021-03-16] MEDS ORDERED: TETRACAINE HCL/PF 0.5% OPTH 4 ML BTL OP ONE (21:00)
[2021-03-16] MEDS ORDERED: TOBR5SOL17 OP (21:04)
[2021-03-16] MEDS ORDERED: NAPR-54 PO (21:04)
--- NOTE | 2021-03-16 21:35 | NUR ---
PATIENT STATES HE IS NOW ABLE TO OPEN HIS EYES, PAIN HAS DECREASED TO 6 OUT OF 10.
[2021-03-16 21:40] VITALS: BP 143/118
--- NOTE | 2021-03-16 21:40 | NUR ---
Patient discharged with v/s stable. Written and verbal after care instructions given and explained. Patient alert, oriented and verbalized understanding of instructions. Ambulatory with steady gait. All questions addressed prior to discharge. ID band removed. Patient advised to follow up with PMD. Rx of NAPROXEN, TOBRAMYCIN given. Patient educated on indication of medication including possible reaction and side effects. Opportunity to ask questions provided and answered.
== END 2021-03-16 21:40 | disposition home or self-care (01) ==
LOC: MED 20:18
DX: H10.9 Unspecified conjunctivitis (principal); J45.909 Unspecified asthma, uncomplicated; Z88.5 Allergy status to narcotic agent; Z88.6 Allergy status to analgesic agent; Z79.899 Other long term (current) drug therapy; Z98.890 Other specified postprocedural states
CPT/HCPCS: 99283

== ENCOUNTER 2021-09-10 08:48 | Emergency (ER) | payer MEDICAID ==
[~2021-09-10] VITALS: Ht 162.6 cm; Wt 78.5 kg
[~2021-09-10 08:48] MED LIST: NAPR-54 PO; TOBR5SOL17 OP
[2021-09-10 08:59] VITALS: BP 154/93
--- NOTE | 2021-09-10 09:04 | NUR ---
PT UNABLE TO PRODUCE URINE SAMPLE
--- NOTE | 2021-09-10 09:05 | NUR ---
PT AMBULATED TO BED 12.
--- NOTE | 2021-09-10 09:20 | NUR ---
46YO M C/O DYSURIA AND PENILE PAIN X 2 WEEKS. (+) ODORLESS GREENISH PENILE DISCHARGE WITH SPOTTING. PT REPORTS HEMATURIA X 4 DAYS. DENIES FEVER, DENIES MULTIPLE SEXUAL PARTNERS. PT STATES THAT PARTNER IS ASYMPTOMATIC. DENIES HX OF STD. BURNING PAIN TO LOW BACK, TENDER TO TOUCH 10/10 PAIN. PT STATES "FEELS LIKE SOMETHING IS BLOCKING" PMH: ASTHMA, DM MEDS: NONE ALLERGY: VICODINE
[2021-09-10 09:25] LABS: BILIRUBIN,URINE 1+ (NEGATIVE); BLOOD, URINE 3+ (NEGATIVE); COLOR,URINE YELLOW (YELLOW); LEUKOCYTE ESTERASE ,URINE TRACE (NEGATIVE); NITRITE, URINE NEGATIVE (NEGATIVE); UGLUCOSE NEGATIVE (NEGATIVE)
--- NOTE | 2021-09-10 09:34 | NUR ---
PT'S GIRLFRIEND JAVI, AT BEDSIDE
[2021-09-10 09:35] LABS: RBC,URINE 11-20 (MOD) /HPF (0-5); WBC,URINE 0-5 /HPF (0-5)
[2021-09-10 09:37] LABS: APPEARANCE,URINE HAZY (CLEAR)
--- NOTE | 2021-09-10 09:56 | NUR ---
PT STATES "I FEEL LIKE IM HAVING AN ASTHMA ATTACK" REQUESTING FOR A BREATHING TX. ERMD MADE AWARE. ON ROOM AIR, O2 SATURATION 100%
--- NOTE | 2021-09-10 10:23 | NUR ---
ERMD AT BEDSIDE EXAMINING PT
[2021-09-10] MEDS ORDERED: KETOROLAC 30 MG/ML VIAL IM ONE (10:45)
--- NOTE | 2021-09-10 10:56 | NUR ---
US AT BEDSIDE
--- NOTE | 2021-09-10 12:30 | NUR ---
Patient resting in bed. Vital Signs within normal limits. Respirations even and unlabored. Chest rise is symmetrical. Safety precautions in place. Bed locked in lowest position. Will continue to monitor.
[2021-09-10] MEDS ORDERED: IBUP-2230 PO (14:28)
[2021-09-10] MEDS ORDERED: NYST1CRE8 TP (14:28)
[2021-09-10] MEDS ORDERED: CLIN300C2 PO (14:28)
[2021-09-10] MEDS ORDERED: ALBUTEROL SULFATE/IPRATROPIU 3 ML SOL IH ONE (14:45)
[2021-09-10] MEDS ORDERED: ALBU0.0912 IH (15:02)
[2021-09-10 15:05] VITALS: BP 140/75
--- NOTE | 2021-09-10 15:07 | NUR ---
Patient discharged with v/s stable. Written and verbal after care instructions given and explained. Patient alert, oriented and verbalized understanding of instructions. Ambulatory with steady gait. All questions addressed prior to discharge. ID band removed. Patient advised to follow up with PMD. Rx of CLINDAMYCIN HCI, IBUPROFEN, NYSTATIN/TRIAMCIN, given. Patient educated on indication of medication including possible reaction and side effects. Opportunity to ask questions provided and answered.
== END 2021-09-10 15:07 | disposition home or self-care (01) ==
LOC: MED 08:48
DX: N48.1 Balanitis (principal); R31.9 Hematuria, unspecified; J45.909 Unspecified asthma, uncomplicated; R30.0 Dysuria; Z79.899 Other long term (current) drug therapy; Z88.5 Allergy status to narcotic agent; Z88.6 Allergy status to analgesic agent
CPT/HCPCS: 76870; 81001; 94640; 94760; 96372; 99284; J1885; Q0092

== ENCOUNTER 2023-04-22 00:26 | Inpatient (IN) | payer MEDICAID ==
[~2023-04-22] VITALS: Ht 162.6 cm
[~2023-04-22 00:26] MED LIST changes: +ALBU0.0912 IH; +CLIN300C2 PO; +IBUP-2230 PO; +NYST15CR7 TP; -TOBR5SOL17 OP; +TOBR5SOL38 OP
[2023-04-22 00:48] VITALS: BP 135/73
--- NOTE | 2023-04-22 02:00 | NUR ---
SEEN AD EXAMINED BY ERMDavid
[2023-04-22] MEDS ORDERED: LIDOCAINE 5% 1 EA PATCH TP STA (02:03)
[2023-04-22] MEDS ORDERED: methocarbamoL 500 MG TAB PO STA (02:03)
[2023-04-22] MEDS ORDERED: DEXAMETHASONE 4 MG/ML VIAL PO ONE (02:05)
--- NOTE | 2023-04-22 02:05 | NUR ---
MEDICATED PER ERMDS ORDER, TOLERATED WELL.
[2023-04-22 02:22] VITALS: BP 135/73
[2023-04-22] MEDS ORDERED: KETOROLAC 15 MG/ML VIAL IM ONE (03:30)
[2023-04-22] MEDS ORDERED: ALBUTEROL 0.083% 2.5 MG/3 ML NEBU INH ONE ×3 (03:30→06:45)
[2023-04-22] MEDS ORDERED: IPRATROPIUM 0.02% 0.5 MG/2.5 ML NEBU INH ONE (03:30)
--- NOTE | 2023-04-22 03:55 | NUR ---
Patient resting in bed, A/Ox4, chest rise and fall symmetrical, no s/s of distress, on monitor.
--- NOTE | 2023-04-22 04:20 | NUR ---
Patient resting in bed, A/Ox4, chest rise and fall symmetrical, no c/o pain or s/s of distress, on monitor.
--- NOTE | 2023-04-22 04:26 | NUR ---
Dr. Fortune verbally infomred that patient should stay in hospital. Patient verbalized that he "wants to go home." Dr. Fortune educated patient on risks for not being admitted into hospital. Patient verbalized understanding and had no further questions. Addendum: 04/22/23 at [email or web address] Fortune verbally informed that patient should stay in hospital. Patient verbalized that he "wants to go home." Dr. Fortune educated patient on risks for not being admitted into hospital. Patient verbalized understanding and had no further questions.
[2023-04-22] MEDS ORDERED: IBUP-2213 PO (05:40)
[2023-04-22] MEDS ORDERED: ALBU0.0912 IH (05:40)
[2023-04-22] MEDS ORDERED: LID5T TP (05:40)
[2023-04-22] MEDS ORDERED: PRED20TA5 PO (06:02)
[2023-04-22] MEDS ORDERED: AZIT250T4 PO (06:33)
--- NOTE | 2023-04-22 06:37 | NUR ---
Patient resting in bed, A/Ox4, chest rise and fall symmetrical, no c/o pain or s/s of distress, on monitor.
--- NOTE | 2023-04-22 06:37 | NUR ---
Dr. Cooper spoke to patient. Patient changed his mind and now wants to be admitted into hospital. Dr. Cooper verbalized understanding.
[2023-04-22] MEDS ORDERED: AZITHROMYCIN 500 MG in DEXTROSE 5% 250 ML IV ONE (06:40)
--- NOTE | 2023-04-22 06:40 | NUR ---
Patient resting in bed, A/Ox4, chest rise and fall symmetrical, no c/o pain or s/s of distress, on monitor.
[2023-04-22] MEDS ORDERED: AZITHROMYCIN 500 MG INJ VIAL IV ONE (07:04)
[2023-04-22 07:10] LABS: BASOPHILS % (AUTO) 0.2 % (0.0-2.0); EOSINOPHILS % (AUTO) 0.1 % (0.0-4.0); HEMATOCRIT 45.1 % (36-52); HEMOGLOBIN 14.8 g/dL (12.0-18.0); LYMPHOCYTES # (AUTO) 0.6 K/uL (2.0-11.5); MEAN CORPUSCULAR HEMOGLOBIN 29 pg (27-31); MEAN CORPUSCULAR HGB CONC 33 g/dL (33-37); MEAN CORPUSCULAR VOLUME 88.1 fL (80-94); MONOCYTES # (AUTO) 0.5 K/uL (0.8-1.0); MONOCYTES % (AUTO) 3.4 % (1.7-9.3); NEUTROPHILS # (AUTO) 13.4 K/uL (1.8-7.7); NEUTROPHILS % (AUTO) 92.3 % (42.2-75.2); PLATELET COUNT (AUTO) 259 K/uL (140-450); RED BLOOD CELL COUNT(AUTO) 5.13 MIL/uL (4.20-6.10); RED CELL DISTRIBUTION WIDTH 15.1 % (11.6-13.7); WHITE BLOOD COUNT (AUTO) 14.5 K/uL (4.8-10.8)
--- NOTE | 2023-04-22 07:16 | NUR ---
Change of shift report given to AM shift Nurse Key RUBIO. AM shift Nurse Key RUBIO verbalized understanding of report, no further questions.
[2023-04-22 07:27] LABS: ALBUMIN 3.6 g/dL (3.4-5.0); ANION GAP 12.6 (8-16); CARBON DIOXIDE 28.1 mmol/L (21-32); CREATININE 0.9 mg/dL (0.6-1.3); POTASSIUM 3.7 mmol/L (3.5-5.1); TOTAL BILIRUBIN 0.3 mg/dL (0.0-1.0)
[2023-04-22] MEDS ORDERED: NACL 0.9% 2,000 ML IV ONE (07:40)
[2023-04-22] MEDS ORDERED: NACL 0.9% 1,000 ML IV SCH (08:10)
[2023-04-22] MEDS ORDERED: ONDANSETRON 4 MG/2 ML VIAL IM/IVP PRN (08:10)
[2023-04-22] MEDS ORDERED: ZOLPIDEM 5 MG TAB PO PRN (08:10)
[2023-04-22] MEDS ORDERED: HYDROcodone/APAP 7.5/325 MG 1 TAB PO PRN (08:10)
[2023-04-22] MEDS ORDERED: POTASSIUM CHLORIDE 10 MEQ TABER PO PRN (08:10)
[2023-04-22] MEDS ORDERED: DOCUSATE SODIUM 100 MG GELCAP PO PRN (08:10)
[2023-04-22] MEDS ORDERED: guaiFENesin DM 200/20 MG-10 ML 10 ML UDC PO PRN (08:10)
[2023-04-22] MEDS ORDERED: PANTOPRAZOLE 40 MG TABEC PO SCH (09:00)
--- NOTE | 2023-04-22 10:27 | NUR ---
critical value from lab called to ER. lactic acid 3.6 informed
[2023-04-22] MEDS ORDERED: ALBUTEROL HFA MDI 90 MCG/ACTUATION 8 GM INH PRN (11:35)
[2023-04-22] MEDS ORDERED: ALBUTEROL 0.083% 2.5 MG/3 ML NEBU INH PRN (11:45)
--- NOTE | 2023-04-22 12:34 | NUR ---
BLOOD GLUCOSE, ACCUCHECK 154MG/dL
[2023-04-22] MEDS ORDERED: PIPERACILLIN/TAZOBACTAM 3.375 GM in DEXTROSE 5% 50 ML IV SCH (13:00)
[2023-04-22] MEDS ORDERED: PIPERACILLIN/TAZOBACTAM 3.375 GM VIAL IV ONE (13:06)
[2023-04-22 13:45] LABS: APPEARANCE,URINE CLEAR (CLEAR); BILIRUBIN,URINE NEGATIVE (NEGATIVE); BLOOD, URINE NEGATIVE (NEGATIVE); COLOR,URINE YELLOW (YELLOW); LEUKOCYTE ESTERASE ,URINE NEGATIVE (NEGATIVE); NITRITE, URINE NEGATIVE (NEGATIVE); UGLUCOSE NEGATIVE (NEGATIVE)
[2023-04-22 13:58] LABS: BARBITURATE, URINE NEGATIVE ng/ml (NEG <=200); BENZODIAZEPINE, URINE NEGATIVE ng/mL (NEG <=200); COCAINE, URINE NEGATIVE ng/mL (NEG <=300)
[2023-04-22 13:59] LABS: CANNABINOID, URINE NEGATIVE ng/mL (NEG <=50); OPIATE, URINE NEGATIVE ng/mL (NEG <=2000); PHENCYCLIDINE SCREEN,URINE NEGATIVE ng/mL (NEG <=25)
[2023-04-22] MEDS ORDERED: NACL 0.9% 1,000 ML IV ONE (17:00)
--- NOTE | 2023-04-22 19:15 | NUR ---
IV removed, catheter intact and site benign. Applied folded 4x4 gauze and tape to stop bleeding.
--- NOTE | 2023-04-22 19:19 | NUR ---
Note john in EDM - 04/22/23 at 1923 by [email or web address] pt AMA home. vitals stable. ambulated without assitance. no distress
--- NOTE | 2023-04-22 19:19 | NUR ---
Patient does not wish to proceed with medical care recommended by Dr. Sales. Patient given information related to possible complications, up to and including , which could occur as a result of leaving hospital at this time. Patient verbalizes understanding of risks involved leaving against medical advice. Patient has signed AMA form.
[2023-04-22 19:21] VITALS: BP 116/74
== END 2023-04-22 19:19 | disposition left against medical advice (07) | DRG 720 ==
LOC: MED 00:26 → MTU 08:13
PROVIDERS: ADMIT Student in an Organized Health Care Education/Training Program; ATTEND Student in an Organized Health Care Education/Training Program
DX: A41.9 Sepsis, unspecified organism (principal); J96.00 Acute respiratory failure, unspecified whether with hypoxia or hypercapnia; J69.0 Pneumonitis due to inhalation of food and vomit; E87.20 Acidosis, unspecified; R07.81 Pleurodynia; J45.909 Unspecified asthma, uncomplicated; F17.210 Nicotine dependence, cigarettes, uncomplicated; Z20.822 Contact with and (suspected) exposure to COVID-19; Z53.29 Procedure and treatment not carried out because of patient's decision for other reasons
CPT/HCPCS: 36415; 71101; 71250; 80053; 80305; 81003; 83605; 84484; 85025; 87040; 94640; 94664; 96372; 96374; 99285; J0456; J1100; J1885; J2543; J7060; J7613; J7644